=== PATIENT | female | born 1990 | race Two or more races ===

== ENCOUNTER 2017-01-30 09:59 | Outpatient (CLI) | payer MEDICAID ==
[~2017-01-30] VITALS: Ht 144.8 cm; Wt 72.7 kg
[2017-01-30] MEDS ORDERED: PREN1TAB60 PO (10:25)
[2017-01-30 10:36] VITALS: BP 129/86
[2017-01-30 11:35] LABS: AMNISURE NEGATIVE (NEGATIVE)
[2017-01-30 11:36] LABS: AMNI OBC PASS
== END 2017-01-30 12:15 | disposition home or self-care (01) ==
LOC: LDOP 09:59
PROVIDERS: ATTEND Obstetrics & Gynecology
DX: O42.913 Preterm premature rupture of membranes, unspecified as to length of time between rupture and onset of labor, third trimester (principal); O36.8130 Decreased fetal movements, third trimester, not applicable or unspecified; O62.9 Abnormality of forces of labor, unspecified; Z3A.35 35 weeks gestation of pregnancy
CPT/HCPCS: 59025; 76815; 81001; 84112; 99211; G0463

== ENCOUNTER 2017-02-24 09:02 | Inpatient (IN) | payer MEDICAID ==
[~2017-02-24] VITALS: Ht 144.8 cm; Wt 77.2 kg
[~2017-02-24 09:02] MED LIST: PREN1TAB60 PO
[2017-02-24] MEDS ORDERED: D5%-LACTATED RINGERS 1,000 ML IV SCH (09:18)
[2017-02-24] MEDS ORDERED: OXYTOCIN 30U/ 0.9% NaCL 500ML 500 ML IV ONE (09:18)
[2017-02-24] MEDS ORDERED: LACTATED RINGERS 1,000 ML IV SCH ×2 (09:18→11:14)
[2017-02-24] MEDS ORDERED: FENTANYL PF 100 MCG/2ML IVPush PRN (09:30)
[2017-02-24] MEDS ORDERED: PLEASE ENTER HEIGHT AND WEIGHT MC SCH (09:30)
[2017-02-24] MEDS ORDERED: FENTANYL PF 100 MCG/2ML IV PRN (09:30)
[2017-02-24] MEDS ORDERED: ONDANSETRON 2MG/ML, 2ML IVPush PRN (09:30)
[2017-02-24] MEDS ORDERED: OXYTOCIN 30U/ 0.9% NaCL 500ML 500 ML ONE (11:12)
[2017-02-24] MEDS ORDERED: NEWBORN KIT ONE (11:12)
[2017-02-24] MEDS ORDERED: FENTANYL/BUPIV./NS/PF 250 ML EPIDCONT SCH (11:14)
[2017-02-24] MEDS ORDERED: FENTANYL/BUPIV./NS/PF 250 ML EPIDCONT ONE (11:19)
[2017-02-24] MEDS ORDERED: LIDOCAINE/PF 1.5%-EPI 1:200K, 30ML ONE (11:20)
[2017-02-24] MEDS ORDERED: EPHEDRINE 50 MG/ML, 1ML IVPush PRN (11:30)
[2017-02-24] MEDS ORDERED: NALOXONE 0.4 MG/ML, 1ML IVPush PRN (11:30)
[2017-02-24] MEDS ORDERED: LACTATED RINGERS 1,000 ML IVBOLUS PRN (11:30)
[2017-02-24] MEDS ORDERED: OXYTOCIN 30U/ 0.9% NaCL 500ML 500 ML IV PRN (12:31)
[2017-02-24] MEDS ORDERED: OXYTOCIN 30U/ 0.9% NaCL 500ML 500 ML IV SCH (13:21)
[2017-02-24] MEDS ORDERED: DOCUSATE 100 MG CAPSULE PO PRN (13:30)
[2017-02-24] MEDS ORDERED: OXYcodone/APAP 5/325MG TABLET PO PRN ×2 (13:30)
[2017-02-24] MEDS ORDERED: MISOPROSTOL 200 MCG TABLET PR PRN (13:30)
[2017-02-24] MEDS ORDERED: ONDANSETRON 2MG/ML, 2ML IV PRN (13:30)
[2017-02-24] MEDS ORDERED: ACETAMINOPHEN 325 MG TABLET PO PRN (13:30)
[2017-02-24] MEDS ORDERED: IBUPROFEN 600 MG TABLET PO PRN (13:30)
[2017-02-24 16:10] VITALS: BP 127/82
[2017-02-24 20:15] VITALS: BP 127/89
[2017-02-25] MEDS ORDERED: DIPH,PERTUSS(ACELL),TET VAC/PF NC IM-VACC ONE
[2017-02-25 00:05] VITALS: BP 122/77
[2017-02-25 03:48] VITALS: BP 112/74
[2017-02-25 07:02] VITALS: BP 113/66
[2017-02-25] MEDS ORDERED: PRENATAL VIT/IRON/FA 1 EACH TABLET PO SCH (09:00)
[2017-02-25] MEDS ORDERED: IBUP-1222 PO (12:14)
[2017-02-25] MEDS ORDERED: OXYC-302 PO (12:14)
== END 2017-02-25 13:34 | disposition home or self-care (01) | DRG 775 ==
LOC: LDOP 09:02 → LDIP 09:44 → 2NW 15:51
PROVIDERS: ADMIT Obstetrics & Gynecology; ATTEND Obstetrics & Gynecology
PROC: 0HQ9XZZ Repair Perineum Skin, External Approach (ICD-10-PCS; principal; 2017-02-24)
PROC: 00HU33Z Insertion of Infusion Device into Spinal Canal, Percutaneous Approach (ICD-10-PCS; 2017-02-24)
PROC: 3E0R3CZ (ICD-10-PCS; 2017-02-24)
DX: O70.0 First degree perineal laceration during delivery (principal); Z37.0 Single live birth; Z3A.38 38 weeks gestation of pregnancy
CPT/HCPCS: 36415; 85025; 86850; 86900; J2590; J3010; J7120

== ENCOUNTER 2018-05-06 13:44 | Emergency (ER) | payer MEDICAID ==
[~2018-05-06] VITALS: Ht 144.8 cm; Wt 69.6 kg
[~2018-05-06 13:44] MED LIST changes: +IBUP-1222 PO; +OXYC-302 PO
[2018-05-06] MEDS ORDERED: SODIUM CHLORIDE FLUSH 10ML SYR IVF ONE (14:30)
[2018-05-06 14:32] LABS: BASOPHILS # (AUTO) 0.01 x10^3/uL (0-0.1); BASOPHILS % (AUTO) 0 % (0-1); EOSINOPHILS # (AUTO) 0.09 x10^3/uL (0-0.4); EOSINOPHILS % (AUTO) 2 % (1-7); LYMPHOCYTES # (AUTO) 1.81 x10^3/uL (1-3.4); LYMPHOCYTES % (AUTO) 42 % (22-44); MD NO; MEAN CORPUSCULAR HGB CONC 34.1 g/dL (32.4-35.8); MEAN CORPUSCULAR VOLUME 87.8 fL (80-100); MEAN PLATELET VOLUME 7.9 fL (7.4-10.4); MONOCYTES # (AUTO) 0.35 x10^3/uL (0.2-0.8); MONOCYTES % (AUTO) 8 % (2-9); NEUTROPHILS # (AUTO) 2.05 x10^3/uL (1.8-6.8); NEUTROPHILS % (AUTO) 48 % (42-75); PLATELET COUNT 271 x10^3/uL (130-400); RED BLOOD COUNT 4.24 x10^6/uL (3.82-5.3); RED CELL DISTRIBUTION WIDTH 13.4 % (9.6-15.2)
[2018-05-06 14:33] LABS: MICROSCOPIC NOT IND
[2018-05-06 14:43] LABS: ALANINE AMINOTRANSFERASE 19 U/L (12-78); ALBUMIN 3.9 g/dL (3.4-5.0); ANION GAP 7 mmol/L (5-15); CALCIUM 8.6 mg/dL (8.5-10.1); CHLORIDE 107 mmol/L (98-107)
[2018-05-06 14:44] LABS: CULTURE INDICATED? NO
[2018-05-06 14:48] LABS: ALKALINE PHOSPHATASE 79 U/L (45-117); BILIRUBIN,TOTAL 0.5 mg/dL (0.2-1.0)
[2018-05-06 14:49] VITALS: BP 111/71
== END 2018-05-06 15:34 | disposition home or self-care (01) ==
LOC: ED 14:40
DX: R10.31 Right lower quadrant pain (principal)
CPT/HCPCS: 36415; 80053; 81003; 84703; 85025; 99284

== ENCOUNTER 2018-07-09 08:24 | Emergency (ER) | payer MEDICAID ==
[~2018-07-09] VITALS: Ht 144.8 cm; Wt 72.2 kg
[2018-07-09] MEDS ORDERED: PROCHLORPERAZINE 5 MG/ML, 2ML IVPush ONE (09:00)
[2018-07-09] MEDS ORDERED: DIPHENHYDRAMINE 50 MG/ML, 1ML IVPush ONE (09:00)
[2018-07-09] MEDS ORDERED: KETOROLAC 30 MG/1 ML IVPush ONE (09:00)
[2018-07-09] MEDS ORDERED: SODIUM CHLORIDE FLUSH 10ML SYR IVF ONE (09:00)
[2018-07-09 09:10] LABS: HCG UR SG 1.022 (1.003-1.030)
[2018-07-09] MEDS ORDERED: PROCHLORPERAZINE 5 MG/ML, 2ML ONE (09:20)
[2018-07-09] MEDS ORDERED: DIPHENHYDRAMINE 50 MG/ML, 1ML ONE (09:20)
[2018-07-09 09:26] LABS: BASOPHILS % (AUTO) 0 % (0-1); EOSINOPHILS # (AUTO) 0.05 x10^3/uL (0-0.4); EOSINOPHILS % (AUTO) 1 % (1-7); LYMPHOCYTES % (AUTO) 34 % (22-44); MD NO; MEAN CORPUSCULAR HEMOGLOBIN 29.4 pg (27.0-34.8); MEAN CORPUSCULAR HGB CONC 33.8 g/dL (32.4-35.8); MEAN CORPUSCULAR VOLUME 87.1 fL (80-100); MEAN PLATELET VOLUME 7.7 fL (7.4-10.4); MONOCYTES # (AUTO) 0.29 x10^3/uL (0.2-0.8); MONOCYTES % (AUTO) 8 % (2-9); NEUTROPHILS # (AUTO) 2.16 x10^3/uL (1.8-6.8); NEUTROPHILS % (AUTO) 57 % (42-75); PLATELET COUNT 261 x10^3/uL (130-400); RED BLOOD COUNT 4.27 x10^6/uL (3.82-5.3); RED CELL DISTRIBUTION WIDTH 13.3 % (9.6-15.2)
[2018-07-09 09:39] LABS: CULTURE INDICATED? YES; MICROSCOPIC AUTO
[2018-07-09 09:39] LABS: ALBUMIN 3.8 g/dL (3.4-5.0); ANION GAP 9 mmol/L (5-15); CALCIUM 8.3 mg/dL (8.5-10.1); CHLORIDE 106 mmol/L (98-107)
[2018-07-09 09:44] LABS: ALANINE AMINOTRANSFERASE 20 U/L (12-78); ALKALINE PHOSPHATASE 68 U/L (45-117); BILIRUBIN,TOTAL 0.4 mg/dL (0.2-1.0); CREATININE 0.74 mg/dL (0.55-1.02); TOTAL PROTEIN 7.7 g/dL (6.4-8.2)
[2018-07-09 10:48] VITALS: BP 111/69
== END 2018-07-09 12:09 | disposition home or self-care (01) ==
LOC: ED 10:35
DX: G43.009 Migraine without aura, not intractable, without status migrainosus (principal); K21.9 Gastro-esophageal reflux disease without esophagitis; F41.1 Generalized anxiety disorder
CPT/HCPCS: 36415; 70450; 80053; 81001; 81025; 85025; 87086; 96374; 96375; 99285; J0780; J1200

== ENCOUNTER 2018-11-19 08:17 | Emergency (ER) | payer MEDICAID ==
[~2018-11-19] VITALS: Ht 144.8 cm; Wt 73.0 kg
[2018-11-19 08:52] LABS: BASOPHILS # (AUTO) 0.03 x10^3/uL (0-0.1); BASOPHILS % (AUTO) 0 % (0-1); EOSINOPHILS # (AUTO) 0.09 x10^3/uL (0-0.4); EOSINOPHILS % (AUTO) 1 % (1-7); LYMPHOCYTES # (AUTO) 1.76 x10^3/uL (1-3.4); LYMPHOCYTES % (AUTO) 23 % (22-44); MD NO; MEAN CORPUSCULAR HEMOGLOBIN 29.3 pg (27.0-34.8); MEAN CORPUSCULAR HGB CONC 33.7 g/dL (32.4-35.8); MEAN CORPUSCULAR VOLUME 86.8 fL (80-100); MEAN PLATELET VOLUME 8.1 fL (7.4-10.4); MONOCYTES # (AUTO) 0.41 x10^3/uL (0.2-0.8); MONOCYTES % (AUTO) 5 % (2-9); NEUTROPHILS # (AUTO) 5.46 x10^3/uL (1.8-6.8); NEUTROPHILS % (AUTO) 70 % (42-75); PLATELET COUNT 301 x10^3/uL (130-400); RED BLOOD COUNT 4.64 x10^6/uL (3.82-5.3); RED CELL DISTRIBUTION WIDTH 13.4 % (9.6-15.2)
[2018-11-19 09:04] LABS: MICROSCOPIC NOT IND
[2018-11-19 09:06] LABS: ALBUMIN 4.1 g/dL (3.4-5.0); ANION GAP 6 mmol/L (5-15); CALCIUM 8.9 mg/dL (8.5-10.1); CHLORIDE 107 mmol/L (98-107)
[2018-11-19 09:09] LABS: CULTURE INDICATED? NO
[2018-11-19 09:12] LABS: ALKALINE PHOSPHATASE 63 U/L (45-117); BILIRUBIN,TOTAL 0.8 mg/dL (0.2-1.0); CREATININE 0.91 mg/dL (0.55-1.02); TOTAL PROTEIN 8.6 g/dL (6.4-8.2)
[2018-11-19 09:13] LABS: ALANINE AMINOTRANSFERASE 55 U/L (12-78)
--- NOTE | 2018-11-19 09:13 | NUR ---
Pt to T2 from lobby
--- NOTE | 2018-11-19 09:15 | NUR ---
Pt resting on [facility] and provided hospital gown to change in to. EVELIO.
--- NOTE | 2018-11-19 09:18 | NUR ---
Pt states seeing baby crib in her room makes her upset & requests to be moved. Pt moved to rm 24. Receiving RN Silvina updated.
--- NOTE | 2018-11-19 09:30 | NUR ---
PT MOVED TO RM 24 AND ASSUMED CARE. PT TO XRAY
--- NOTE | 2018-11-19 09:41 | NUR ---
MD AT BEDSIDE EXAMINING PT
[2018-11-19 09:46] VITALS: BP 118/76
== END 2018-11-19 10:11 | disposition home or self-care (01) ==
LOC: ED 09:00
DX: K29.00 Acute gastritis without bleeding (principal); E78.5 Hyperlipidemia, unspecified; K21.9 Gastro-esophageal reflux disease without esophagitis
CPT/HCPCS: 36415; 74021; 80053; 81003; 83690; 84703; 85025; 99284

== ENCOUNTER 2019-01-23 08:14 | Emergency (ER) | payer MEDICAID ==
[~2019-01-23] VITALS: Ht 144.8 cm; Wt 72.1 kg
[2019-01-23 08:16] VITALS: BP 138/83
--- NOTE | 2019-01-23 08:42 | NUR ---
PT PRESSENTS TO ED C/O ABD PAIN AND PAINFUL URINATION. STATES PAINFUL URINATION ON AND OFF X 1 MONTH, WITH ABD PAIN STARTING THE LAST FEW DAYS. PT AMBULATORY WITH STEADY GAIT TO BATHROOM FOR UA. BACK TO ROOM. RESTING ON GURNEY. CALL LIGHT IN REACH, NADN. ALL CONCERNS ADRESSED.
[2019-01-23 08:50] LABS: MICROSCOPIC AUTO
[2019-01-23 08:55] LABS: CULTURE INDICATED? YES
[2019-01-23 09:00] LABS: ALBUMIN 4.1 g/dL (3.4-5.0); ANION GAP 7 mmol/L (5-15); CHLORIDE 108 mmol/L (98-107)
[2019-01-23 09:05] LABS: ALANINE AMINOTRANSFERASE 23 U/L (12-78); ALKALINE PHOSPHATASE 63 U/L (45-117); BILIRUBIN,TOTAL 0.6 mg/dL (0.2-1.0); CREATININE 0.87 mg/dL (0.55-1.02); TOTAL PROTEIN 8.2 g/dL (6.4-8.2)
[2019-01-23 09:11] LABS: BASOPHILS # (AUTO) 0.01 x10^3/uL (0-0.1); BASOPHILS % (AUTO) 0 % (0-1); EOSINOPHILS # (AUTO) 0.04 x10^3/uL (0-0.4); EOSINOPHILS % (AUTO) 1 % (1-7); LYMPHOCYTES # (AUTO) 1.51 x10^3/uL (1-3.4); LYMPHOCYTES % (AUTO) 36 % (22-44); MD NO; MEAN CORPUSCULAR HEMOGLOBIN 29.7 pg (27.0-34.8); MEAN CORPUSCULAR HGB CONC 34.2 g/dL (32.4-35.8); MEAN CORPUSCULAR VOLUME 86.7 fL (80-100); MEAN PLATELET VOLUME 8.3 fL (7.4-10.4); MONOCYTES # (AUTO) 0.28 x10^3/uL (0.2-0.8); MONOCYTES % (AUTO) 7 % (2-9); NEUTROPHILS # (AUTO) 2.34 x10^3/uL (1.8-6.8); NEUTROPHILS % (AUTO) 56 % (42-75); PLATELET COUNT 299 x10^3/uL (130-400); RED BLOOD COUNT 4.33 x10^6/uL (3.82-5.3); RED CELL DISTRIBUTION WIDTH 13.8 % (9.6-15.2)
--- NOTE | 2019-01-23 10:56 | NUR ---
Patient/Caregiver given discharge instructions and they have confirmed that they understand the instructions. Patient ambulatory with steady gait. Pt left with all personal belongings.
== END 2019-01-23 10:57 | disposition home or self-care (01) ==
LOC: ED 09:49
DX: K29.50 Unspecified chronic gastritis without bleeding (principal); E78.5 Hyperlipidemia, unspecified; K21.9 Gastro-esophageal reflux disease without esophagitis; G43.909 Migraine, unspecified, not intractable, without status migrainosus
CPT/HCPCS: 36415; 76830; 80053; 81001; 83690; 84703; 85025; 87086; 99284